=== PATIENT | female | born 1950 | race Caucasian/White ===

== ENCOUNTER 2017-07-31 09:59 | Emergency (ER) | payer OTHER ==
[~2017-07-31] VITALS: Ht 154.9 cm; Wt 75.7 kg
[2017-07-31 10:05] VITALS: Ht 154.9 cm; Wt 75.7 kg
[2017-07-31 10:48] LABS: BASOPHIL % 0.2 % (0-2); PLATELET COUNT 177 x10^3mcL (130-400)
[2017-07-31 10:50] LABS: CALCIUM 8.9 mg/dL (8.5-10.1); CARBON DIOXIDE 24.6 mmol/L (21-32)
[2017-07-31 10:54] LABS: BILIRUBIN TOTAL 0.27 mg/dL (0.20-1.00); TOTAL PROTEIN, SERUM 7.8 g/dL (6.4-8.2)
[2017-07-31 10:55] LABS: RED CELL DISTRIBUTION WIDTH 18.1 % (11.5-14.5)
[2017-07-31 12:27] VITALS: BP 142/87
[2017-07-31 12:47] LABS: microscopic required? YES; urine erythrocyte NEGATIVE (NEGATIVE)
== END 2017-07-31 12:27 | disposition home or self-care (01) ==
LOC: ED 09:59
PROVIDERS: Emergency Medicine
DX: B34.9 Viral infection, unspecified (principal); I10 Essential (primary) hypertension
CPT/HCPCS: 83880; 87804; J1885; J7613; Q0092

== ENCOUNTER 2019-04-23 18:02 | Emergency (ER) | payer OTHER ==
[~2019-04-23] VITALS: Ht 121.9 cm; Wt 54.4 kg
[2019-04-23 18:03] VITALS: Ht 121.9 cm; Wt 54.4 kg
[2019-04-23 18:41] LABS: PLATELET COUNT 256 x10^3mcL (130-400)
[2019-04-23 18:43] LABS: RED CELL DISTRIBUTION WIDTH 15.1 % (11.5-14.5)
[2019-04-23 18:45] LABS: CALCIUM 9.2 mg/dL (8.5-10.1); CARBON DIOXIDE 17.8 mmol/L (21-32); CREATININE SERUM 1.9 mg/dL (0.6-1.0); POTASSIUM SERUM 4.1 mmol/L (3.5-5.1)
[2019-04-23 18:51] LABS: ALBUMIN 3.8 g/dL (3.4-5.0); BILIRUBIN TOTAL 0.24 mg/dL (0.20-1.00)
[2019-04-23 18:52] LABS: TOTAL PROTEIN, SERUM 8.4 g/dL (6.4-8.2)
[2019-04-23 19:01] LABS: BAND NEUTROPHIL 8 % (0-10); BASOPHIL 0 % (0-2); MONOCYTE 1 % (0-7); SEGMENTED NEUTROPHILS 86 % (37-75)
[2019-04-23 19:02] LABS: rbc morphology (normal/abnorm) NORMAL (NORMAL)
[2019-04-23 19:03] LABS: PLATELET MORPHOLOGY PLATELETS NORMAL
[2019-04-23 23:19] LABS: microscopic required? NO
[2019-04-23 23:35] LABS: urine erythrocyte NEGATIVE (NEGATIVE)
[2019-04-24 00:36] VITALS: BP 118/75
== END 2019-04-24 00:36 | disposition home or self-care (01) ==
LOC: ED 18:02
PROVIDERS: Emergency Medicine
DX: E86.0 Dehydration (principal); N20.0 Calculus of kidney; N17.9 Acute kidney failure, unspecified; I10 Essential (primary) hypertension; M79.7 Fibromyalgia; Z98.890 Other specified postprocedural states; Z85.3 Personal history of malignant neoplasm of breast
CPT/HCPCS: J2270; J2405; J7030; Q0092; Q0162